=== PATIENT | female | born 1975 | race Caucasian/White ===

== ENCOUNTER 2016-12-02 21:42 | Emergency (ER) | payer BC, OTHER ==
[~2016-12-02] VITALS: Ht 175.3 cm; Wt 65.0 kg
[~2016-12-02 21:42] MED LIST: FERR325T PO; PERC5TAB12 PO; PREN0.01 PO; Z.0.NO CURRENT MEDS
[2016-12-02 21:44] VITALS: BP 123/77; PULSE 84; RESP 16; TEMP 98.5; O2SAT 100
[2016-12-02] MEDS ORDERED: DOXY1CAP74 PO (23:04)
[2016-12-02] MEDS ORDERED: ALLE60TA PO (23:04)
[2016-12-02] MEDS ORDERED: motrin PO (23:04)
[2016-12-02] MEDS ORDERED: [UNRECOGNIZED DRUG - CODE] TOPICAL (23:04)
[2016-12-02] MEDS ORDERED: TETRACAINE 0.5% OPTH SOLN 4 ML BTL LEFT EYE ONE (23:15)
--- NOTE | 2016-12-02 23:33 | PD ---
HPI . Left eye pressure Chief Complaint: Eye Problems/Injury Time Seen by Provider: 22:53 Travel History International Travel<30 days: No Contact w/Intl Traveler<30days: No Traveled to known affect area: No History of Present Illness HPI The patient presents with a chief complaint of left eye pressure associated with nausea. She reports the acute onset sometime this afternoon. She states that it is actually spontaneously improving. She is concerned that she has acute angle closure glaucoma and will not have pressure in her eye checked. She denies any foreign body sensation. She has minimal blurred vision. She is not seen any halos. She has not noted any discharge from her eye. No modifying factors. PFSH Past Medical History Cancer: No Diabetes: No Diminished Hearing: No Hepatitis: No Hiatal Hernia: No Medical other: Yes (ARTHRITIS KNEE) Thyroid Disease: No Tetanus Vaccination: Unknown Influenza Vaccination: No ?: Not : 5 Para: 4 Miscarriage: 1 Past Surgical History Gynecologic Surgery: Yes (D&C X 2) Hysterectomy: Yes (2016) Other Surgery: Yes Social History Alcohol Use: No Tobacco Use: No Substance Use: No Allergies-Medications (Allergen,Severity, Reaction): Coded Allergies: No Known Allergies (Verified , 07/21/14) Reported Meds & Prescriptions Reported Meds & Active Scripts Active Reported [motrin] PO Sepideh Allergy (Fexofenadine HCl) 60 Mg Tab Mg PO PRN Retin-A Topical 0.1% (Tretinoin) 0.1 % Cream 1 Applic TOPICAL HS Doxycycline 40 Mg Cap Mg PO BID Review of Systems Except as stated in HPI: all other systems reviewed are Neg General / Constitutional: No: Fever, Chills Eyes: Positive: Blurred Vision, Redness, Pain, No: Diploplia, Photophobia, Drainage, Foreign Body Sensation, Tearing, Blind Spots, Visual changes, Blindness Gastrointestinal: Positive: Nausea, No: Vomiting Physical Exam Narrative GENERAL: Awake and alert and in no acute distress. SKIN: Warm and dry. HEAD: Atraumatic. Normocephalic. EYES: Pupils equal and round. Minimal conjunctival injection of the left eye. No ciliary flush. The cornea is deep and clear. Pupils are equally round and reactive to light. Chucky-Pen revealed a pressure of 6. NECK: Trachea midline. CARDIOVASCULAR: Regular rate and rhythm. RESPIRATORY: No accessory muscle use. MUSCULOSKELETAL: No obvious deformities. No edema. NEUROLOGICAL: Awake and alert. No obvious cranial nerve deficits. Motor grossly within normal limits. Normal speech. PSYCHIATRIC: Appropriate mood and affect; insight and judgment normal. Data Data Last Documented VS Vital Signs Date Time Temp Pulse Resp B/P Pulse Ox O2 Delivery O2 Flow Rate FiO2 12/02/16 21:44 98.5 84 16 123/77 100 Room Air Orders Tetracaine 0.5% Opth Soln (Tetracaine 0. (12/02/16 23:15) MDM Medical Decision Making Medical Screen Exam Complete: Yes Emergency Medical Condition: Yes Differential Diagnosis Differential diagnosis of eye pain includes but is not limited to conjunctivitis , chemical irritation, corneal abrasion, acute angle-closure glaucoma. Narrative Course This patient presents for the evaluation of left eye pain. Specifically, she would like to have her pressure checked. She states that she does not need anything for the eye pain and she does not need anything for the nausea. She is only concerned about acute angle closure glaucoma. Her pressure is 6. Diagnosis Primary Impression: Acute left eye pain Disposition: DISCHARGE HOME Condition: Stable Jasmyne Vann MD Dec 02, 2016 23:32
== END 2016-12-03 00:05 | disposition home or self-care (01) ==
LOC: NEPE 21:42
DX: H57.12 Ocular pain, left eye (principal)
CPT/HCPCS: 99283